=== PATIENT | male | born 1990 | race Caucasian/White ===

== ENCOUNTER 2017-06-29 12:32 | Outpatient (CLI) | END 2017-06-29 12:33 | LOC: AMBL 12:32 | PROVIDERS: ATTEND Emergency Medicine | DX: S69.91XA Unspecified injury of right wrist, hand and finger(s), initial encounter (principal); S69.92XA Unspecified injury of left wrist, hand and finger(s), initial encounter; S79.911A Unspecified injury of right hip, initial encounter; W17.89XA Other fall from one level to another, initial encounter ==